=== PATIENT | female | born 1985 | race African-American/Black ===

== ENCOUNTER 2017-07-12 16:11 | Emergency (ER) | payer OTHER ==
[~2017-07-12] VITALS: Ht 167.6 cm; Wt 87.8 kg
[~2017-07-12 16:11] MED LIST: BACTRIM,SEPT1 TABLET PO; BENTYL20 MG PO; DIFLUCAN150 MG PO; FLEXERIL10 MG PO; FLONASE16 G1 BOTH NARES; KEFLEX500 MG PO; NOHOMEMEDS; PRILOSEC40 MG PO; ZOFRAN4 MG PO; ZYRTEC10 M2 PO; no home meds
[2017-07-12] MEDS ORDERED: NAPROXEN500 MG PO (18:17)
[2017-07-12] MEDS ORDERED: FLEXERIL10 MG PO (18:17)
[2017-07-12 18:45] VITALS: BP 97/60
== END 2017-07-12 18:45 | disposition home or self-care (01) ==
LOC: EME 16:11
DX: S39.012A Strain of muscle, fascia and tendon of lower back, initial encounter (principal); S33.5XXA Sprain of ligaments of lumbar spine, initial encounter; M62.838 Other muscle spasm; V44.0XXA Car driver injured in collision with heavy transport vehicle or bus in nontraffic accident, initial encounter; Y92.410 Unspecified street and highway as the place of occurrence of the external cause; Z88.5 Allergy status to narcotic agent
CPT/HCPCS: 99281; 99283